=== PATIENT | female | born 1955 | race American Indian/Alaskan Native ===

== ENCOUNTER 2020-06-26 14:46 | Emergency (ER) | payer SELFPAY ==
[2020-06-26 15:47] VITALS: BP 211/107
== END 2020-06-26 17:00 | disposition left against medical advice (07) ==
LOC: ED 14:46
DX: M54.6 Pain in thoracic spine (principal); M54.2 Cervicalgia; Z53.21 Procedure and treatment not carried out due to patient leaving prior to being seen by health care provider